=== PATIENT | female | born 1970 | race Caucasian/White ===

== ENCOUNTER 2018-11-03 00:22 | Emergency (ER) | payer OTHER ==
[2018-11-03 00:36] VITALS: O2SAT 99
--- NOTE | 2018-11-03 00:43 | ERPHSYRPT ---
- History of Present Illness Time Seen by Provider: 11/03/18 00:30 Source: patient Exam Limitations: clinical condition Patient Subjective Stated Complaint: clearance for long-term. pt states she lopez been doing meth and smoking marijuana today. was pulled over for impaired driving Triage Nursing Assessment: pt alert and oriented, answers questions approp. pt cooperative at this time. pt ambulatory with steady gait noted. respirations nonlabored with lungs cta. skin pink warm and dry. pupils equal and reacitve. Physician History: PATIENT WITH A HISTORY OF COPD, PULLED OVER BY POLICE FOR IMPAIRED DRIVING, SMOKED METHAMPHETAMINE AND MARIJUANA EARLIER TODAY. DENIES CHEST PAIN, DYSPNEA. HERE FOR MEDICAL CLEARANCE. Timing/Duration: today Severity: mild Associated Symptoms: denies symptoms Allergies/Adverse Reactions: No Known Drug Allergies Allergy (Verified 11/03/18 00:36) Hx Tetanus, Diphtheria Vaccination/Date Given: Yes Hx Influenza Vaccination/Date Given: No Hx Pneumococcal Vaccination/Date Given: No Immunizations Up to Date: Yes - Review of Systems Constitutional: No Fever, No Chills Eyes: No Symptoms Ears, Nose, & Throat: No Symptoms Respiratory: No Symptoms, No Cough, No Dyspnea Cardiac: No Symptoms, No Chest Pain, No Edema, No Syncope Abdominal/Gastrointestinal: Constipation, No Abdominal Pain, No Nausea, No Vomiting, No Diarrhea Genitourinary Symptoms: No Symptoms, No Dysuria Musculoskeletal: No Back Pain, No Neck Pain Skin: No Rash Neurological: No Dizziness, No Focal Weakness, No Sensory Changes Psychological: No Symptoms Endocrine: No Symptoms All Other Systems: Reviewed and Negative - Past Medical History Pertinent Past Medical History: Yes Neurological History: Stroke, TIA Cardiac History: No Pertinent History Respiratory History: COPD, Pneumonia Endocrine Medical History: No Pertinent History Musculoskeletal History: Arthritis Other Medical History: Possible hs of TIA/CVA. Pt reports that previous MRI revealed a "spot" on brain which the doctor thought might be a stroke. - Past Surgical History Past Surgical History: Yes Other Surgical History: nodule removed from vocal cords - Social History Smoking Status: Current every day smoker How long have you smoked: YRS Exposure to second hand smoke: Yes Drug Use: marijuana, methamphetamines Patient Lives Alone: No - Nursing Vital Signs Nursing Vital Signs: Initial Vital Signs Temperature 97.7 F 11/03/18 00:23 Pulse Rate 106 H 11/03/18 00:23 Respiratory Rate 18 11/03/18 00:23 Blood Pressure 156/119 05/11/19 00:23 O2 Sat by Pulse Oximetry 99 11/03/18 00:23 Pain Scale Pain Intensity 0 - Physical Exam General Appearance: no apparent distress, other (AMBULATES INTO EMERGENCY ROOM NORMAL GAIT.) Eye Exam: PERRL/EOMI Ears, Nose, Throat Exam: normal ENT inspection Neck Exam: normal inspection Respiratory Exam: normal breath sounds Cardiovascular Exam: regular rate/rhythm SpO2: 99 Ordered Tests: Active Orders 24 hr Category Date Time Status Urine Triage Profile Stat Lab 11/03/18 00:38 Uncollected - Progress Progress Note: 11/03/18 01:12 PATIENT HAS BEEN ALERT APPROPRIATE, CONVERSATIONAL X 50 MINUTES WHILE IN THE EMERGENCY ROOM, IN NO DISTRESS Counseled pt/family regarding: lab results, need for follow-up - Departure Departure Disposition: Correction/[facility] Clinical Impression: Medical clearance for incarceration, SUBSTANCE ABUSE Condition: Stable Critical Care Time: No Referrals: LUKAS CARRERA [Primary Care Provider] - Additional Instructions: CONSULT YOUR PRIMARY CARE PROVIDER FOR FOLLOWUP.
[2018-11-03 01:31] VITALS: BP 151/97; PULSE 95
== END 2018-11-03 01:31 | disposition home or self-care (01) ==
LOC: ED 00:22
DX: F19.10 Other psychoactive substance abuse, uncomplicated (principal); Z02.89 Encounter for other administrative examinations
CPT/HCPCS: 99283